=== PATIENT | female | born 1985 | race Two or more races ===

== ENCOUNTER 2018-04-12 09:05 | Inpatient (IN) | payer MEDICAID, OTHER | END 2018-04-14 10:05 | disposition home or self-care (01) | LOC: LDRP 09:05 | PROC: 10E0XZZ Delivery of Products of Conception, External Approach (ICD-10-PCS; principal; ~2018-04-12) | DX: O60.10X0 Preterm labor with preterm delivery, unspecified trimester, not applicable or unspecified (principal); Z37.0 Single live birth; Z3A.36 36 weeks gestation of pregnancy ==